=== PATIENT | female | born 1980 | race Caucasian/White ===

== ENCOUNTER 2018-05-22 05:13 | Emergency (ER) | payer SELFPAY ==
[~2018-05-22] VITALS: Ht 153.7 cm; Wt 81.6 kg
[2018-05-22] MEDS ORDERED: ALBU8.5H2 (05:33)
[2018-05-22] MEDS ORDERED: CETI10TA20 (05:33)
[2018-05-22] MEDS ORDERED: AZITHROMYCIN 250 MG TAB (ZITHROMAX) PO ONE (05:45)
[2018-05-22] MEDS ORDERED: RT-ALBUTEROL/IPRATROPIUM 3 ML (DUONEB) VIAL INH ONE (05:45)
[2018-05-22] MEDS ORDERED: OSELTAMIVIR 75 MG (TAMIFLU) CAPSULE PO ONE (05:45)
[2018-05-22] MEDS ORDERED: predniSONE 20 MG TAB PO ONE (05:45)
[2018-05-22] MEDS ORDERED: OSLT75C PO (05:53)
[2018-05-22] MEDS ORDERED: PRD20T PO (05:53)
[2018-05-22] MEDS ORDERED: AZIT250T12 PO (05:53)
--- NOTE | 2018-05-22 05:53 | ED EENT ---
History of Present Illness General Chief Complaint: Oral/Throat Problems Stated Complaint: SOB,SORE THROAT, HEADACHE Nursing Triage Note: sore throat/sinus congestion states tried to get into primary dr but is unable to until the June History of Present Illness Date Seen by Provider: May 22, 2018 Time Seen by Provider: 05:33 This is a 37-year-old female with a history of asthma here for 2 days of nasal congestion, sore throat, cough, increased wheezing. Her albuterol is only transiently helping. No chest pain. She felt warm but every time she measured her temperature it was afebrile. No facial pain or headache. Allergies and Home Medications Allergies Coded Allergies: No Known Drug Allergies (Unverified , 05/22/18) Home Medications Cetirizine HCl 10 Mg Tablet, DAILY, (Reported) Patient Home Medication List Home Medication List Reviewed: Yes Review of Systems Review of Systems Constitutional: see HPI Eyes: No Symptoms Reported Ears: Other (feels mild congestion in both of her ears) Nose: congestion Mouth: no symptoms reported Throat: other (sore throat, hoarse voice) Respiratory: cough, wheezing Cardiovascular: no symptoms reported Gastrointestinal: no symptoms reported Musculoskeletal: other (had diffuse myalgias on day 1 which have completely resolved) Skin: no symptoms reported Neurological: No Symptoms Reported Hematologic/Lymphatic: No Symptoms Reported Immunological/Allergic: no symptoms reported Past Crjimeo-Ndyrhb-Ezwcvk Hx Past Med/Social Hx: Reviewed Nursing Past Med/Soc Hx Patient Social History Alcohol Use: Denies Use Recreational Drug Use: No Smoking Status: Never a Smoker 2nd Hand Smoke Exposure: No Recent Foreign Travel: No Contact w/Someone Who Travel: No Recent Infectious Disease Expo: No Recent Hopitalizations: No Physical Abuse: No Sexual Abuse: No Mistreated: No Fear: No Seasonal Allergies Seasonal Allergies: No Past Medical History Surgeries: No Respiratory: Yes Asthma Cardiac: No Neurological: No Genitourinary: No Gastrointestinal: No Musculoskeletal: No Endocrine: No HEENT: No Cancer: No Psychosocial: No Integumentary: No Blood Disorders: No Physical Exam Vital Signs Vital Signs - First Documented 05/22/18 05:26 Temp 97.4 Pulse 94 Resp 18 B/P (MAP) 154/82 (106) Pulse Ox 97 O2 Delivery Room Air Height, Weight, BMI Height: 5'0.50" Weight: 180lbs. oz. 81.036001kk; BMI Method:Stated General Appearance: no apparent distress Ears: bilateral ear TM normal Nose: other (boggy nasal turbinates, no facial tenderness) Mouth/Throat: other (pharynx mildly erythematous) Neck: supple, other (mild tenderness bilateral anterior cervical chains) Cardiovascular: normal peripheral pulses, regular rate, rhythm Respiratory: other (no respiratory distress, good air exchange bilaterally, mild bilateral expiratory wheezes) Gastrointestinal: non tender, soft Neurologic/Psychiatric: no motor/sensory deficits, alert, normal mood/affect, oriented x 3; No abnormal gait Skin: warm/dry Progress/Results/Core Measures Results/Orders My Orders Orders - BRENT POWELL DO Chest 1 View Ap/Pa Only (05/22/18 05:32) Prednisone Tablet (Deltasone Tablet) (05/22/18 05:45) Oseltamivir 75 Mg Capsule (Tamiflu 75 (05/22/18 05:45) Azithromycin Tablet (Zithromax Tablet) (05/22/18 05:45) Albuterol/Ipra Inhalation Soln (Duoneb I (05/22/18 05:45) Svn Small Volume Nebulizer (05/22/18 05:34) Medications Given in ED Current Medications Medications Dose Ordered Sig/Leana Route Start Time Stop Time Status Last Admin Dose Admin Albuterol/ Ipratropium 3 ml ONCE ONCE INH 05/22/18 05:45 05/22/18 05:46 DC 05/22/18 05:42 3 ML Azithromycin 500 mg ONCE ONCE PO 05/22/18 05:45 05/22/18 05:46 DC 05/22/18 05:43 500 MG Oseltamivir Phosphate 75 mg ONCE ONCE PO 05/22/18 05:45 05/22/18 05:46 DC 05/22/18 05:44 75 MG Prednisone 60 mg ONCE ONCE PO 05/22/18 05:45 05/22/18 05:46 DC 05/22/18 05:43 60 MG Vital Signs/I&O 05/22/18 05:26 Temp 97.4 Pulse 94 Resp 18 B/P (MAP) 154/82 (106) Pulse Ox 97 O2 Delivery Room Air Blood Pressure Mean: 106 Progress Progress Note : Progress Note Influenza is a consideration, we are at the end of the window where Tamiflu would be effective and patient may benefit so we will give a dose now and will prescribe a 5 day course. We will give prednisone, we will give a DuoNeb treatment in the emergency department. We will cover for possible bacterial etiology with azithromycin. Departure Impression Primary Impression: Influenza-like illness Additional Impression: Asthma exacerbation Disposition: 01 HOME, SELF-CARE Condition: Stable Departure-Patient Inst. Referrals: LUIS OLMOS MD (PCP) Primary Care Physician Patient Instructions: Flu Vaccine Scripts Oseltamivir Phosphate (Tamiflu) 75 Mg Cap 75 MG PO BID for 5 Days, #9 CAP Prov: BRENT POWELL DO 05/22/18 Prednisone (Prednisone) 20 Mg Tab 60 MG PO DAILY for 5 Days, #15 TAB 0 Refills Prov: BRENT POWELL DO 05/22/18 Azithromycin (Azithromycin) 250 Mg Tablet 250 MG PO DAILY for 4 Days, #4 TAB Prov: BRENT POWELL DO 05/22/18 BRENT POWELL DO May 22, 2018 05:53
[2018-05-22 06:08] VITALS: BP 120/85
== END 2018-05-22 06:08 | disposition home or self-care (01) ==
LOC: ER FS 05:17
DX: J11.1 Influenza due to unidentified influenza virus with other respiratory manifestations (principal); J45.901 Unspecified asthma with (acute) exacerbation
CPT/HCPCS: 99283

== ENCOUNTER → 2022-06-18 | Outpatient (CLI) | payer MEDICAID ==
[~2022-06-18] MED LIST: ALBU8.5H2; AZIT250T12 PO; CETI10TA20; OSLT75C PO; PRD20T PO
[2022-06-18 10:31] VITALS: BP 131/87
--- NOTE | 2022-06-18 17:00 | Cardiology Stress Test Report ---
Stress Test Report Date of Procedure/Referring: PCP Beto Castro MD Admitting Physician Admitting Physician: Attending Physician: Patricia Washington Indications: CP Baseline Heart Rate: 80 Baseline Blood Pressure: Blood Pressure Systolic: 131 Blood Pressure Diastolic: 87 Baseline EKG: Baseline EKG: NSR Summary/Conclusion: Summary: In summary, the patient started exercising with a baseline heart rate, blood pressure and EKG mentioned above Patient was able to exercise for a total of 6 minutes on Karl protocol, METs 7.3 Maximum heart rate 165 Maximum blood pressure 168/87 Stress EKG, Minimal nondiagnostic changes Recovery EKG , Return to baseline Conclusion: 1. Good exercise tolerance for a total of 6 minutes on Karl protocol, 7.3 METs, achieving 91 percent of maximum expected heart rate 2. Minimal nondiagnostic EKG changes with exercise returned to baseline during recovery 3. No arrhythmia was noted PARRISH IRWIN MD Jun 18, 2022 17:00
== END ==
LOC: CARD 10:10
PROVIDERS: ATTEND Physician Assistant
DX: R07.9 Chest pain, unspecified (principal)
CPT/HCPCS: 93017

== ENCOUNTER → 2022-12-05 | Outpatient (CLI) | payer BC, MEDICAID ==
--- NOTE | 2022-12-05 16:03 | Diagnostic Imaging Report ---
PROCEDURE: MRI right joint lower extremity without contrast. TECHNIQUE: Multiplanar, multisequence non contrast-enhanced MRI of the right lower extremity was accomplished. INDICATION: Right hip pain. COMPARISON: None. FINDINGS: No acute fracture is seen in the right hip. Alignment appears normal. There is no joint effusion. No focal bony lesions are seen. The sacroiliac joints appear patent. There are degenerative changes in the lower lumbar spine. The right acetabular labrum is not well evaluated in the absence of intra-articular contrast. No definite tear or paralabral cyst is seen. The iliopsoas tendon is intact. The gluteus minimus tendon demonstrates mild edema and tendinopathy. The gluteus medius tendon also demonstrates mild tendinopathy and edema distally. The hamstring tendon origins are intact. There is a small amount of fluid in the greater trochanteric bursa. There is no iliopsoas bursitis. Soft tissues about the pelvis and right hip demonstrate no acute abnormality. No focal muscular atrophy is seen. No free fluid is seen in the pelvis. There are small nabothian cysts noted. IMPRESSION: 1. Mild tendinopathy of the right gluteus medius and minimus tendons with a small right greater trochanteric bursitis. Dictated by: Dictated on workstation # [id number]
== END ==
LOC: RAD 14:46
PROVIDERS: ATTEND Family Medicine
DX: M76.01 Gluteal tendinitis, right hip (principal); M70.61 Trochanteric bursitis, right hip
CPT/HCPCS: 73721